=== PATIENT | male | born 1950 | race Native Hawaiian/Other Pacific Islander ===

== ENCOUNTER 2020-02-12 10:25 | Outpatient (CLI) | payer OTHER ==
[2020-02-12 10:48] LABS: PLATELET COUNT 219 K/uL (142-355)
== END 2020-02-12 19:04 | disposition home or self-care (01) ==
LOC: LABW 10:25 → CT 10:25 → LABW 19:04
PROVIDERS: Internal Medicine
DX: R09.02 Hypoxemia (principal); I10 Essential (primary) hypertension; E03.8 Other specified hypothyroidism; N40.0 Benign prostatic hyperplasia without lower urinary tract symptoms; Z12.5 Encounter for screening for malignant neoplasm of prostate; R06.09 Other forms of dyspnea
CPT/HCPCS: 36415; 80053; 80061; 81000; 83880; 84153; 84439; 84443; 85027; 85379; Q9963

== ENCOUNTER 2020-03-04 08:15 | Outpatient (CLI) | payer OTHER | END 2020-03-04 22:23 | disposition home or self-care (01) | LOC: US 08:15 | PROVIDERS: ATTEND Internal Medicine | DX: Z12.2 Encounter for screening for malignant neoplasm of respiratory organs (principal); Z87.891 Personal history of nicotine dependence | CPT/HCPCS: G0297-TC ==

== ENCOUNTER 2020-06-12 10:29 | Outpatient (CLI) | payer OTHER ==
[2020-06-12 10:54] LABS: PLATELET COUNT 180 K/uL (142-355)
[2020-06-12 12:11] LABS: POTASSIUM 3.8 mmol/L (3.6-5.2)
== END 2020-06-12 21:45 | disposition home or self-care (01) ==
LOC: LABW 10:29
PROVIDERS: ATTEND Internal Medicine Endocrinology, Diabetes & Metabolism
DX: Z00.00 Encounter for general adult medical examination without abnormal findings (principal); I10 Essential (primary) hypertension; E03.8 Other specified hypothyroidism; G45.8 Other transient cerebral ischemic attacks and related syndromes; F41.8 Other specified anxiety disorders; K21.9 Gastro-esophageal reflux disease without esophagitis; R53.82 Chronic fatigue, unspecified; Z79.899 Other long term (current) drug therapy; E55.9 Vitamin D deficiency, unspecified; E53.8 Deficiency of other specified B group vitamins
CPT/HCPCS: 36415; 80053; 80061; 81000; 82306; 82607; 83036; 84439; 84443; 85027

== ENCOUNTER 2020-07-08 12:53 | Outpatient (CLI) | payer OTHER ==
[~2020-07-08] VITALS: Ht 172.7 cm; Wt 100.7 kg
== END 2020-07-08 19:18 | disposition home or self-care (01) ==
LOC: DIABINF 12:53
PROVIDERS: ATTEND Internal Medicine Endocrinology, Diabetes & Metabolism
DX: E88.81 Metabolic syndrome and other insulin resistance (principal); R73.03 Prediabetes; I10 Essential (primary) hypertension; E03.8 Other specified hypothyroidism; K21.9 Gastro-esophageal reflux disease without esophagitis; F41.1 Generalized anxiety disorder; F32.89 Other specified depressive episodes; E55.9 Vitamin D deficiency, unspecified
CPT/HCPCS: 82948; 96365; 96366; 96521; 99204; J1718; J1815

== ENCOUNTER 2020-07-09 12:59 | Outpatient (CLI) | payer OTHER ==
[~2020-07-09] VITALS: Ht 172.7 cm; Wt 100.7 kg
== END 2020-07-09 20:29 | disposition home or self-care (01) ==
LOC: DIABINF 12:59
PROVIDERS: ATTEND Internal Medicine Endocrinology, Diabetes & Metabolism
DX: E88.81 Metabolic syndrome and other insulin resistance (principal); R73.03 Prediabetes; I10 Essential (primary) hypertension; E03.8 Other specified hypothyroidism; K21.9 Gastro-esophageal reflux disease without esophagitis; F41.1 Generalized anxiety disorder; F32.89 Other specified depressive episodes; E55.9 Vitamin D deficiency, unspecified
CPT/HCPCS: 82948; 96365; 96366; 96521; 99214; J1718; J1815

== ENCOUNTER 2020-07-15 12:45 | Outpatient (CLI) | payer OTHER ==
[~2020-07-15] VITALS: Ht 172.7 cm; Wt 100.7 kg
== END 2020-07-15 21:11 | disposition home or self-care (01) ==
LOC: DIABINF 12:45
PROVIDERS: ATTEND Internal Medicine Endocrinology, Diabetes & Metabolism
DX: E88.81 Metabolic syndrome and other insulin resistance (principal); R73.03 Prediabetes; I10 Essential (primary) hypertension; E03.8 Other specified hypothyroidism; K21.9 Gastro-esophageal reflux disease without esophagitis; F41.1 Generalized anxiety disorder; F32.89 Other specified depressive episodes; E55.9 Vitamin D deficiency, unspecified
CPT/HCPCS: 82948; 96365; 96366; 96521; 99214; J1718; J1815

== ENCOUNTER 2020-07-16 12:31 | Outpatient (CLI) | payer OTHER ==
[~2020-07-16] VITALS: Ht 172.7 cm; Wt 100.7 kg
== END 2020-07-16 21:33 | disposition home or self-care (01) ==
LOC: DIABINF 12:31
PROVIDERS: ATTEND Internal Medicine Endocrinology, Diabetes & Metabolism
DX: E88.81 Metabolic syndrome and other insulin resistance (principal); R73.03 Prediabetes; I10 Essential (primary) hypertension; E03.8 Other specified hypothyroidism; K21.9 Gastro-esophageal reflux disease without esophagitis; F41.1 Generalized anxiety disorder; F32.89 Other specified depressive episodes; E55.9 Vitamin D deficiency, unspecified
CPT/HCPCS: 82948; 96365; 96366; 96521; 99214; J1718; J1815

== ENCOUNTER 2020-07-23 12:32 | Outpatient (CLI) | payer OTHER ==
[~2020-07-23] VITALS: Ht 172.7 cm; Wt 100.7 kg
== END 2020-07-23 21:27 | disposition home or self-care (01) ==
LOC: DIABINF 12:32
PROVIDERS: ATTEND Internal Medicine Endocrinology, Diabetes & Metabolism
DX: E88.81 Metabolic syndrome and other insulin resistance (principal); R73.03 Prediabetes; I10 Essential (primary) hypertension; E03.8 Other specified hypothyroidism; K21.9 Gastro-esophageal reflux disease without esophagitis; F41.1 Generalized anxiety disorder; F32.89 Other specified depressive episodes; E55.9 Vitamin D deficiency, unspecified
CPT/HCPCS: 82948; 96365; 96366; 96521; 99214; J1718; J1815

== ENCOUNTER 2020-08-06 12:40 | Outpatient (CLI) | payer OTHER ==
[~2020-08-06] VITALS: Ht 243.8 cm; Wt 100.7 kg
== END 2020-08-06 19:22 | disposition home or self-care (01) ==
LOC: DIABINF 12:40
PROVIDERS: ATTEND Internal Medicine Endocrinology, Diabetes & Metabolism
DX: E88.81 Metabolic syndrome and other insulin resistance (principal); I10 Essential (primary) hypertension; E03.8 Other specified hypothyroidism; K21.9 Gastro-esophageal reflux disease without esophagitis; F41.1 Generalized anxiety disorder; F32.89 Other specified depressive episodes; E55.9 Vitamin D deficiency, unspecified; L70.0 Acne vulgaris
CPT/HCPCS: 82948; 96365; 96366; 96521; J1815; J1817

== ENCOUNTER 2020-08-13 12:34 | Outpatient (CLI) | payer OTHER ==
[~2020-08-13] VITALS: Ht 172.7 cm; Wt 100.7 kg
== END 2020-08-13 21:12 | disposition home or self-care (01) ==
LOC: DIABINF 12:34
PROVIDERS: ATTEND Internal Medicine Endocrinology, Diabetes & Metabolism
DX: E88.81 Metabolic syndrome and other insulin resistance (principal); R73.03 Prediabetes; I10 Essential (primary) hypertension; E03.8 Other specified hypothyroidism; K21.9 Gastro-esophageal reflux disease without esophagitis; F41.1 Generalized anxiety disorder; F32.89 Other specified depressive episodes; E55.9 Vitamin D deficiency, unspecified; L70.0 Acne vulgaris
CPT/HCPCS: 82948; 96365; 96366; 96521; J1815; J1817

== ENCOUNTER 2020-08-19 12:31 | Outpatient (CLI) | payer OTHER ==
[~2020-08-19] VITALS: Ht 172.7 cm; Wt 100.7 kg
== END 2020-08-19 19:36 | disposition home or self-care (01) ==
LOC: DIABINF 12:31
PROVIDERS: ATTEND Internal Medicine Endocrinology, Diabetes & Metabolism
DX: E88.81 Metabolic syndrome and other insulin resistance (principal); R73.03 Prediabetes; I10 Essential (primary) hypertension; E03.8 Other specified hypothyroidism; K21.9 Gastro-esophageal reflux disease without esophagitis; F41.1 Generalized anxiety disorder; F32.89 Other specified depressive episodes; E55.9 Vitamin D deficiency, unspecified; L70.0 Acne vulgaris
CPT/HCPCS: 82948; 96365; 96366; 96521; J1815; J1817

== ENCOUNTER 2020-08-27 13:14 | Outpatient (CLI) | payer OTHER ==
[~2020-08-27] VITALS: Ht 172.7 cm; Wt 100.7 kg
== END 2020-08-27 20:32 | disposition home or self-care (01) ==
LOC: DIABINF 13:14
PROVIDERS: ATTEND Internal Medicine Endocrinology, Diabetes & Metabolism
DX: E88.81 Metabolic syndrome and other insulin resistance (principal); R73.03 Prediabetes; I10 Essential (primary) hypertension; E03.8 Other specified hypothyroidism; K21.9 Gastro-esophageal reflux disease without esophagitis; F41.1 Generalized anxiety disorder; F32.89 Other specified depressive episodes; E55.9 Vitamin D deficiency, unspecified; L70.0 Acne vulgaris
CPT/HCPCS: 82948; 96365; 96366; 96521; J1815; J1817

== ENCOUNTER 2020-09-03 12:48 | Outpatient (CLI) | payer OTHER ==
[~2020-09-03] VITALS: Ht 172.7 cm; Wt 100.7 kg
== END 2020-09-03 21:05 | disposition home or self-care (01) ==
LOC: DIABINF 12:48
PROVIDERS: ATTEND Internal Medicine Endocrinology, Diabetes & Metabolism
DX: E88.81 Metabolic syndrome and other insulin resistance (principal); R73.03 Prediabetes; I10 Essential (primary) hypertension; E03.8 Other specified hypothyroidism; K21.9 Gastro-esophageal reflux disease without esophagitis; F41.1 Generalized anxiety disorder; F32.89 Other specified depressive episodes; E55.9 Vitamin D deficiency, unspecified; L70.0 Acne vulgaris; J01.80 Other acute sinusitis
CPT/HCPCS: 82948; 96365; 96366; 96521; J1815; J1817

== ENCOUNTER 2020-09-10 12:58 | Outpatient (CLI) | payer OTHER ==
[~2020-09-10] VITALS: Ht 172.7 cm; Wt 100.7 kg
== END 2020-09-10 23:04 | disposition home or self-care (01) ==
LOC: DIABINF 12:58
PROVIDERS: ATTEND Internal Medicine Endocrinology, Diabetes & Metabolism
DX: E88.81 Metabolic syndrome and other insulin resistance (principal); R73.03 Prediabetes; I10 Essential (primary) hypertension; E03.8 Other specified hypothyroidism; K21.9 Gastro-esophageal reflux disease without esophagitis; F41.1 Generalized anxiety disorder; F32.89 Other specified depressive episodes; E55.9 Vitamin D deficiency, unspecified
CPT/HCPCS: 82948; 96365; 96366; 96521; J1815; J1817

== ENCOUNTER 2020-09-11 08:47 | Outpatient (CLI) | payer OTHER ==
[2020-09-11 09:53] LABS: POTASSIUM 3.7 mmol/L (3.6-5.2)
== END 2020-09-11 22:41 | disposition home or self-care (01) ==
LOC: LABW 08:47
PROVIDERS: ATTEND Nurse Practitioner
DX: E55.9 Vitamin D deficiency, unspecified (principal); I10 Essential (primary) hypertension; R73.09 Other abnormal glucose
CPT/HCPCS: 36415; 80053; 80061; 82306; 83036

== ENCOUNTER 2020-10-15 13:00 | Outpatient (CLI) | payer OTHER ==
[~2020-10-15] VITALS: Ht 172.7 cm; Wt 100.7 kg
== END 2020-10-15 21:40 | disposition home or self-care (01) ==
LOC: DIABINF 13:00
PROVIDERS: ATTEND Nurse Practitioner
DX: E88.81 Metabolic syndrome and other insulin resistance (principal); I10 Essential (primary) hypertension; E03.8 Other specified hypothyroidism; K21.9 Gastro-esophageal reflux disease without esophagitis; F41.1 Generalized anxiety disorder; F32.89 Other specified depressive episodes; E55.9 Vitamin D deficiency, unspecified
CPT/HCPCS: 82948; 96365; 96366; 96521; J1815; J1817

== ENCOUNTER 2020-10-22 13:06 | Outpatient (CLI) | payer OTHER ==
[~2020-10-22] VITALS: Ht 172.7 cm; Wt 100.7 kg
== END 2020-10-22 21:00 | disposition home or self-care (01) ==
LOC: DIABINF 13:06
PROVIDERS: ATTEND Nurse Practitioner
DX: E88.81 Metabolic syndrome and other insulin resistance (principal); I10 Essential (primary) hypertension; E03.8 Other specified hypothyroidism; K21.9 Gastro-esophageal reflux disease without esophagitis; F41.1 Generalized anxiety disorder; F32.89 Other specified depressive episodes; E55.9 Vitamin D deficiency, unspecified
CPT/HCPCS: 82948; 96365; 96366; 96521; J1815; J1817

== ENCOUNTER 2020-11-06 13:04 | Outpatient (CLI) | payer OTHER ==
[~2020-11-06] VITALS: Ht 172.7 cm; Wt 100.7 kg
== END 2020-11-06 20:35 | disposition home or self-care (01) ==
LOC: DIABINF 13:04
PROVIDERS: ATTEND Internal Medicine Endocrinology, Diabetes & Metabolism
DX: R73.03 Prediabetes (principal); E03.8 Other specified hypothyroidism; G47.39 Other sleep apnea; I10 Essential (primary) hypertension; E78.2 Mixed hyperlipidemia; K21.9 Gastro-esophageal reflux disease without esophagitis; F32.89 Other specified depressive episodes; E55.9 Vitamin D deficiency, unspecified
CPT/HCPCS: 82948; 96365; 96366; 96521; J1815; J1817

== ENCOUNTER 2020-11-19 12:59 | Outpatient (CLI) | payer OTHER ==
[~2020-11-19] VITALS: Ht 172.7 cm; Wt 100.7 kg
== END 2020-11-19 21:15 | disposition home or self-care (01) ==
LOC: DIABINF 12:59
PROVIDERS: ATTEND Internal Medicine Endocrinology, Diabetes & Metabolism
DX: R73.03 Prediabetes (principal); E03.8 Other specified hypothyroidism; G47.39 Other sleep apnea; I10 Essential (primary) hypertension; E78.2 Mixed hyperlipidemia; K21.9 Gastro-esophageal reflux disease without esophagitis; F32.89 Other specified depressive episodes; E55.9 Vitamin D deficiency, unspecified
CPT/HCPCS: J1815